=== PATIENT | female | born 1970 | race Caucasian/White ===

== ENCOUNTER 2022-12-30 17:44 | Outpatient (CLI) | payer BC, SELFPAY | END 2022-12-30 17:45 | disposition home or self-care (01) | PROVIDERS: Visit Provider Family Medicine | DX: R10.32 Left lower quadrant pain (principal) | CPT/HCPCS: 80053; 83690 ==

== ENCOUNTER 2023-09-08 13:39 | Outpatient (CLI) | payer BC, SELFPAY | END 2023-09-08 13:40 | disposition home or self-care (01) | LOC: LKVREF 13:39 | PROVIDERS: PCP Nurse Practitioner Family; Visit Provider Nurse Practitioner Family | DX: Z00.00 Encounter for general adult medical examination without abnormal findings (principal); Z13.6 Encounter for screening for cardiovascular disorders | CPT/HCPCS: 80061 ==

== ENCOUNTER 2023-11-29 12:58 | Outpatient (CLI) | payer BC, SELFPAY ==
--- NOTE | 2023-11-29 13:00 | MM_ITS ---
Patient: NOHELIA WHITTINGTON Facility:?[facility] Patient ID:?[id number] Site Patient ID:?[id number]. Site :?[id number] Study:?XRay-Breast Bilateral 3D W/CAD-11/29/2023 1:22:22 PM Ordering Physician:?Nette Caballero Final Report: BILATERAL SCREENING MAMMOGRAM WITH COMPUTER-AIDED DETECTION AND TOMOSYNTHESIS TECHNIQUE: CC and MLO views were obtained. These mammographic images have been obtained using full-field digital technique. These mammographic images were interpreted with the benefit of computer-aided detection. Breast Tomosynthesis was used in this interpretation. COMPARISON FILM: Baseline. FINDINGS: There are scattered areas of fibroglandular density. IMPRESSION: There is no radiographic evidence for malignancy. ASSESSMENT: BI-RADS Category 1: Negative RECOMMENDATION: Routine screening mammogram in 1 year. A lay language report of this examination will be provided to the patient. Orlando Hendrickson M.D. Diagnostic Radiologist [email or web address] DSM/sp R& Transcribed: 5:48 p.m. SP/Dictated by: Orlando Hendrickson MD @ 11/30/2023 1:17:00 PM Signed by:?Orlando Hendrickson MD @12/01/2023 5:41:06 AM (Electronic Signature)
== END 2023-11-29 12:59 | disposition home or self-care (01) ==
PROVIDERS: PCP Nurse Practitioner Family; Visit Provider Nurse Practitioner Family
DX: Z12.31 Encounter for screening mammogram for malignant neoplasm of breast (principal)
CPT/HCPCS: 77063; 77067